=== PATIENT | male | born 1985 | race Caucasian/White ===

== ENCOUNTER 2018-11-10 07:33 | Emergency (ER) | payer OTHER ==
[2018-11-10] MEDS ORDERED: NS 1,000 ML IV ONE (07:46)
--- NOTE | 2018-11-10 07:56 | EDPHY ---
HPI/HX/ROS/PE/MDM Narrative: CHIEF COMPLAINT: "Kidney stone" HPI: The patient is a 33 y/o male complaining of waxing and waning left flank pain upon waking around 06:00 this morning, almost 2 hours ago. Symptoms feel similar to his prior kidney stones, but he mentions he hasn't vomited yet or had urinary frequency. His pain is alleviated slightly with standing and pacing. He took ibuprofen this morning, but has not noticed any improvement in symptoms yet. No hematuria, fever, dysuria. He has been on Flomax and believes he passed another small stone recently at home. Prior to that his last kidney stone was in 2013. He's had a kidney stone on average every 6 months - 2 years since he was 19 years old. He doesn't know how many he's passed in total. He has never required surgery to remove stone. He has not had a CT scan in the last 10 years for these. REVIEW OF SYSTEMS: A comprehensive 10 system review of systems is otherwise negative aside from elements mentioned in the history of present illness. PMH: Kidney stones, hypercholesterolemia SOCIAL HISTORY: Employed as software controls engineer. Lives in [place]. PCP: Dr. Domínguez. PHYSICAL EXAM: General:Patient is alert, pacing in room. ENT:Eyes are normal to inspection. ENT inspection normal. Neck: Normal inspection. Full range of motion. Respiratory:No respiratory distress. Breath sounds normal bilaterally. Cardiovascular: Regular rate and rhythm. Strong peripheral pulses. Normal cap refill. Abdomen:The abdomen is nontender to palpation. There are no peritoneal signs. Back: Normal to inspection. No tenderness to palpation. Skin: Normal color. No rash. Warm and dry. Extremities: Normal appearance. Full range of motion. Neuro: Oriented x3. Normal motor function. Normal sensory function. ED Course: This is a 33 y/o male with an extensive history of prior kidney stones who presents with a 2-hour history of waxing and waning [id number] left flank pain that feels the same as prior kidney stone pain. He is uncomfortable- appearing and pacing in the room during assessment. No CVA tenderness and abdomen is benign. Plan for IV, labs, UA, symptomatic management, and abdominal CT to evaluate for kidney stones vs other etiology as he has not had CT imaging in at least 10 years for these symptoms. 1L IV NS and 15mg IV Toradol ordered. Abdominal CT: 2.4mm left UVJ stone. Reassessed patient and discussed findings. He is feeling slightly more comfortable after Toradol. 4mg IV Zofran and 1 tab [place] ordered for symptoms. UA shows elevated RBC, consistent with kidney stone. Patient continues to be in pain. 0.25mg IV Dilaudid ordered. 1015: Patient is feeling improved and would like to return home. He will be discharged with standard kidney stone care and follow up instructions. Return precautions discussed. - Data Points Imaging Results: Imaging Impressions Abdomen/Pelvis CT 11/10/18 07:58 Impression: 1. Mild left-sided hydronephrosis secondary to a 2.5 x 4 x 2.5 mm left UVJ calculus. 2. Otherwise, no significant abnormality identified within the abdomen and pelvis. Attention: This CT examination is specifically designed to evaluate patients who are clinically suspected of having acute obstructive uropathy. This examination does not use radiographic contrast, and as such, provides only a limited evaluation of the abdomen, pelvis and retroperitoneum. If there is further clinical suspicion for pathological conditions other than obstructive uropathy, a complete CT evaluation of the abdomen and pelvis utilizing intravenous, oral, and rectal contrast should be considered. Findings discussed with Trevor Penn MD at 8:26 hour, 11/10/2018. Imaging: Discussed imaging studies w/ mail caller Radiologist, I viewed and interpreted images myself Laboratory Results: 11/10/18 08:10 Urine Color YELLOW Urine Appearance MODERATELY TURBID Urine pH 5.0 (5.0-7.5) Ur Specific [place] 1.033 H (1.002-1.030) Urine Protein 1+ H (NEGATIVE) Urine Ketones NEGATIVE (NEGATIVE) Urine Blood 3+ H (NEGATIVE) Urine Nitrate NEGATIVE (NEGATIVE) Urine Bilirubin NEGATIVE (NEGATIVE) Urine Urobilinogen NEGATIVE EU EU (0.2-1.0) Ur Leukocyte Esterase NEGATIVE (NEGATIVE) Urine RBC 50-182 /hpf H /hpf (0-3) Urine WBC 1-3 /hpf /hpf (0-3) Ur Epithelial Cells NONE SEEN /lpf /lpf (NONE-1+) Calcium Oxalate Crystal PRESENT /hpf /hpf (NONE-1+) Urine Bacteria TRACE /hpf H /hpf (NONE SEEN) Urine Mucus TRACE /lpf /lpf (NONE-1+) Urine Glucose NEGATIVE (NEGATIVE) Medications Given: Discontinued Medications Hydromorphone HCl (Dilaudid) 0.25 mg IVP EDNOW ONE Stop: 11/10/18 09:04 Last Admin: 11/10/18 09:07 Dose: 0.25 mg Sodium Chloride (Ns) 1,000 mls @ 0 mls/hr IV ONCE ONE PRN Reason: Wide Open Stop: 11/10/18 07:47 Last Admin: 11/10/18 07:48 Dose: 1,000 mls Ketorolac Tromethamine (Toradol) 15 mg IVP EDNOW ONE Stop: 11/10/18 08:07 Last Admin: 11/10/18 08:29 Dose: 15 mg Ondansetron HCl (Zofran) 4 mg IVP EDNOW ONE Stop: 11/10/18 08:28 Last Admin: 11/10/18 08:29 Dose: 4 mg Oxycodone/Acetaminophen (Percocet 5/325) 1 tab PO EDNOW ONE Stop: 11/10/18 08:37 Last Admin: 11/10/18 08:40 Dose: 1 tab General Time Seen by Provider: 11/10/18 07:40 Initial Vital Signs: Initial Vital Signs Temperature (C) 36.7 C 11/10/18 07:36 Heart Rate 98 11/10/18 07:36 Respiratory Rate 16 11/10/18 07:36 Blood Pressure 173/100 H 11/10/18 07:36 O2 Sat (%) 97 11/10/18 07:36 O2 Delivery Mode Room Air Allergies/Adverse Reactions: No Known Allergies Allergy (Unverified 11/10/18 07:35) Home Medications: Medication Instructions Recorded Flomax 11/10/18 Departure - Departure Disposition: Home, Routine, Self-Care Clinical Impression: Kidney stone on left side Condition: Good Instructions: Kidney Stones (ED) Additional Instructions: 1. Continue taking Flomax as prescribed. 2. Take 800mg ibuprofen every 8 hours for the next few days for symptoms. You received a similar medication here today (Toradol) and should wait at least 8 hours before taking another dose of ibuprofen. 3. Strain urine as directed. 4. Follow up with urologist in the next week. I recommend calling today to schedule this appointment. 5. Return to the ED for inability to urinate, severe pain, uncontrollable vomiting, or other worsening of condition. Referrals: Brown Domínguez MD [Primary Care Provider] - As per Instructions Jonh Mckeon MD [Medical Doctor] - As per Instructions Report Scribed for: Trevor Penn Report Scribed by: Genesis Nova Date of Report: 11/10/18 Time of Report: 07:56 Physician Review and Approval Statement: Portions of this note were transcribed by an ED scribe. I personally performed the history, physical exam, and medical decision making; and confirm the accuracy of the information in the transcribed note.
[2018-11-10] MEDS ORDERED: KETOROLAC 30 MG/1 ML SDV IVP ONE (08:06)
[2018-11-10] MEDS ORDERED: ONDANSETRON 4 MG/2 ML VIAL IVP ONE (08:27)
[2018-11-10] MEDS ORDERED: ONDANSETRON 4 MG/2 ML VIAL ONE (08:27)
[2018-11-10] MEDS ORDERED: OXYCODONE/APAP 5/325 TAB PO ONE (08:36)
[2018-11-10] MEDS ORDERED: HYDROmorphONE/DILAUDID 2 MG/ML INJ IVP ONE (09:03)
[2018-11-10 10:31] VITALS: BP 140/78
== END 2018-11-10 10:29 | disposition home or self-care (01) ==
DX: N20.0 Calculus of kidney (principal)
CPT/HCPCS: 96374; J1170; J1885; J2405

== ENCOUNTER 2018-11-19 09:26 | Emergency (ER) | payer OTHER | END 2018-11-19 11:07 | disposition home or self-care (01) ==